=== PATIENT | male | born 1965 | race African-American/Black ===

== ENCOUNTER 2022-09-29 06:39 | Outpatient (CLI) | payer MEDICARE, OTHER, SELFPAY ==
--- NOTE | ~2022-09-29 | MR_ITS ---
EXAMINATION: MR lumbar spine wo con DATE: 09/29/2022 07:35 INDICATION: Right-sided sciatica TECHNIQUE: Magnetic resonance imaging (MRI) of the lumbar spine was performed without intravenous con trast. Sequences included sagittal T2-weighted FSE, sagittal T2-weighted FS FSE, sagittal T1-weighted FSE, and axial T2-weighted FSE. COMPARISON: None FINDINGS: Alignment is normal. Vertebral body heights are normal. Normal marrow signal. Normal disc heights an d signal. The conus medullaris terminates at T12-L1. There is normal signal in the caudal spinal cord . Paravertebral soft tissues are unremarkable. Incidentally noted on the metal baler localizer images is an indeterminate 6.2 x 6.2 x 3.9 cm hyperintense, likely cystic lesion in the left hemipelvis which exe rts mass effect upon the left side of the bladder. The following disc levels are specifically discuss ed: T12-L1 and L1-L2: The disc does not extend beyond the endplate margin. There is minimal bilateral fac et joint osteoarthritis. There is no neural foraminal stenosis. There is no central canal stenosis. L2-L3: The disc does not extend beyond the endplate margin. There is mild bilateral facet joint osteo arthritis. There is no neural foraminal stenosis. There is no central canal stenosis. L3-L4: Disc is minimally bulging. There is mild left and minimal right facet joint osteoarthritis. Th ere is mild left and minimal right neural foraminal stenosis. There is no central canal stenosis. L4-L5: Disc is mildly bulging. There is mild bilateral facet joint osteoarthritis. There is mild bila teral neural foraminal stenosis. There is no central canal stenosis. L5-S1: Disc is mildly bulging. There is mild bilateral facet joint osteoarthritis. There is minimal l eft neural foraminal stenosis. There is no central canal stenosis. IMPRESSION: 1. Minimal lumbar spondylosis. 2. Indeterminate 6.2 x 6.2 x 3.9 cm likely cystic structure in the left hemipelvis seen on the locali zer images. Consider further evaluation with contrast-enhanced CT. Reviewed, dictated and finalized at location A. [employer] IMPRESSION: 1. Minimal lumbar spondylosis. 2. Indeterminate 6.2 x 6.2 x 3.9 cm likely cystic structure in the left hemipel vis seen on the localizer images. Consider further evaluation with contrast-enh anced CT.
== END 2022-09-29 06:40 | disposition home or self-care (01) ==
PROVIDERS: PCP Family Medicine; Visit Provider Orthopaedic Surgery
DX: M54.31 Sciatica, right side (principal); M47.816 Spondylosis without myelopathy or radiculopathy, lumbar region
CPT/HCPCS: 72148